=== PATIENT | female | born 1950 | race Caucasian/White ===

== ENCOUNTER → 2017-09-09 | Outpatient (CLI) | payer OTHER ==
[~2017-09-09] MED LIST: LISINOPRIL10 MG PO; NABUMETONE 750750 M1 PO; PAXIL10 MG PO; TRAMADOL 50 MG50 MG PO
== END ==
LOC: M.LAB 09:46 → M.CT 11:00
PROVIDERS: Family Medicine
DX: N28.1 Cyst of kidney, acquired (principal); K57.30 Diverticulosis of large intestine without perforation or abscess without bleeding; K76.89 Other specified diseases of liver; I10 Essential (primary) hypertension; F32.9 Major depressive disorder, single episode, unspecified; Z88.0 Allergy status to penicillin

== ENCOUNTER 2017-10-01 10:49 | Emergency (ER) | payer OTHER ==
[~2017-10-01] VITALS: Ht 165.1 cm; Wt 68.0 kg
[2017-10-01 11:22] LABS: URINE BILIRUBIN NEGATIVE (Negative); URINE BLOOD NEGATIVE (Negative); URINE CLARITY CLEAR; URINE COLOR YELLOW; URINE GLUCOSE-RANDOM NEGATIVE (Negative); URINE KETONES NEGATIVE (Negative); URINE LEUKOCYTES NEGATIVE (Negative); URINE NITRITE NEGATIVE (Negative); URINE PROTEIN NEGATIVE (Negative); URINE SPECIFIC GRAVITY <= 1.005 (1.005-1.030); URINE UROBILINOGEN 0.2 E.U./dl (0.2-1.0)
[2017-10-01] MEDS ORDERED: LISINOPRIL10 MG PO (11:31)
[2017-10-01] MEDS ORDERED: PAXIL10 MG PO (11:31)
[2017-10-01 11:32] LABS: ABSOLUTE BASOPHILS 0.1 thou/uL (0.0-0.2); ABSOLUTE EOSINOPHILS 0.1 thou/uL (0.0-0.7); ABSOLUTE LYMPHOCYTES 1.1 thou/uL (0.8-5.3); ABSOLUTE MONOCYTES 0.9 thou/uL (0.0-1.2); ABSOLUTE NEUTROPHILS 6.7 thou/uL (1.6-8.1); BASOPHILS 0.8 %; EOSINOPHILS 0.6 %; HEMATOCRIT 36.1 % (37.0-47.0); HEMOGLOBIN 11.5 gm/dL (12.0-15.0); LYMPHOCYTES 12.1 %; MCH 27.4 pg (26.0-34.0); MCHC 31.9 g/dL (28.0-37.0); MONOCYTES 9.8 %; MPV 9.4 fl. (7.2-11.1); NUCLEATED RBCS 0 /100WBC; PLATELET COUNT* 246 thou/uL (150-400); POLYS 76.7 %; RDW-CV 15.3 % (10.5-14.5); WBC 8.8 thou/uL (4.0-11.0)
[2017-10-01 11:57] LABS: CALCIUM 8.8 mg/dL (8.5-10.1); POTASSIUM 4.2 mmol/L (3.5-5.1)
[2017-10-01 12:02] LABS: ALBUMIN 2.6 g/dL (3.4-5.0); TOTAL BILIRUBIN 0.4 mg/dL (<0.1-1.0)
[2017-10-01] MEDS ORDERED: TRAMADOL 50 MG50 MG PO (15:36)
[2017-10-01] MEDS ORDERED: NABUMETONE 750750 M1 PO (15:36)
[2017-10-01 16:05] VITALS: BP 125/75
--- NOTE | 2017-10-02 10:23 | EKG ---
[place] [address] ELECTROCARDIOGRAM REPORT Name: ADEOLA GIBSON Room: [facility]#: [id number] Admission: 10/01/17 Attend Phys: Discharge: 10/01/17 Date of : 54 Report #: [id number] THIS REPORT FOR: //name// [facility] ED Test Date: 2017-10-01 Test Time: 11:36:32 Pat Name: ADEOLA GIBSON Department: Room: Gender: F Negative Stripper: DANTE : 1950 Requested By: Laura Cardona Order Number: [id number] MD: Marciano Rashid Measurements Intervals [place] Rate: 94 P: 49 W[place]: 123 QRS: -7 QRSD: 85 T: 37 QT: 357 QTc: 447 Interpretive Statements Sinus rhythm No previous ECG available for comparison Electronically Signed On 10-02-2017 10:23:35 CDT by Marciano Rashid [email or web address] <ELECTRONICALLY SIGNED> By: Marciano Rashid MD, [facility] 10/02/17 1023 1136 1136 Marciano Rashid MD, FACC /EPI
== END 2017-10-01 16:10 | disposition home or self-care (01) ==
LOC: M.ERS 10:49
PROVIDERS: Nurse Practitioner Family
DX: K80.20 Calculus of gallbladder without cholecystitis without obstruction (principal); I10 Essential (primary) hypertension; Z88.1 Allergy status to other antibiotic agents

== ENCOUNTER → 2017-12-14 | Outpatient (CLI) | payer OTHER | LOC: M.RAD 13:29 | DX: Z12.31 Encounter for screening mammogram for malignant neoplasm of breast (principal) ==

== ENCOUNTER → 2018-10-20 | Outpatient (CLI) | payer OTHER | LOC: M.LAB 05:09 | DX: E87.6 Hypokalemia (principal) ==